=== PATIENT | female | born 1955 | race Caucasian/White ===

== ENCOUNTER 2016-10-23 10:32 | Emergency (ER) | payer OTHER ==
--- NOTE | 2016-10-23 12:22 | RAD ---
10/23/2016 12:16 PM CHEST - 2 VIEWS History: Left rib pain since Sunday from coughing. Comparison: 06/06/2016 Findings: Two views of the chest are obtained. The lungs are clear with out effusion or pneumothorax. The cardiomediastinal silhouette is unremarkable.. The osseous structures are intact.. IMPRESSION: No acute intrathoracic process.
== END 2016-10-23 14:06 | disposition home or self-care (01) ==
LOC: ED 10:32
DX: R07.81 Pleurodynia (principal); I10 Essential (primary) hypertension; J45.909 Unspecified asthma, uncomplicated; F17.210 Nicotine dependence, cigarettes, uncomplicated

== ENCOUNTER 2016-11-03 11:46 | Emergency (ER) | payer OTHER ==
[2016-11-03] MEDS ORDERED: ALBUTEROL/IPRATROPIUM 2.5/0.5 MG 3 ML/EACH DOSE ONE (12:02)
== END 2016-11-03 12:45 | disposition home or self-care (01) ==
LOC: ED 11:46
DX: J45.909 Unspecified asthma, uncomplicated (principal); I10 Essential (primary) hypertension; F17.210 Nicotine dependence, cigarettes, uncomplicated